=== PATIENT | male | born 1965 | race Caucasian/White ===

== ENCOUNTER 2016-12-21 05:11 | Inpatient (IN) | payer OTHER ==
[2016-12-21] VITALS (15 sets, daily range): BP systolic 112–139; BP diastolic 62–90
[~2016-12-21] VITALS: Ht 172.7 cm; Wt 79.4 kg
[~2016-12-21 05:11] MED LIST: Bacitracin 50000 Units Vial ONE; Bupivacaine 0.5% Inj 30 ml vial INJ ONE; Bupivacaine w/Epi 0.5% 30ml Vial INJ ONE; Gelfoam Absorbable 1gm powder pkt TOPIC ONE; Heparin 5000 units/ml inj ONE; IBUPROFEN600 MG ORAL; LOSARTAN POTASS25 MG ORAL; SOMA350 MG PO; Surgicel 4in x 8in TOPIC ONE; TRAMADOL HCL50 MG ORAL; Thrombin 5000 units TOPIC ONE; Thrombin 5000 units spray kit TOPIC ONE
--- NOTE | 2016-12-21 06:58 | Pre-Procedure Note/Attestation ---
Pre-Procedure Note/Attestation Complete Prior to Procedure Planned Procedure: not applicable Procedure Narrative: For L3-4 Disc Arthroplasty and L5/S1 ALIF Indications for Procedure Pre-Operative Diagnosis: Disc Herniation and instability L3-4 and L5/S1 Attestation I attest that I discussed the nature of the procedure; its benefits; risks and complications; and alternatives (and the risks and benefits of such alternatives ), prior to the procedure, with the patient (or the patient's legal employment representative). I attest that, if there was a reasonable possibility of needing a blood transfusion, the patient (or the patient's legal employment representative) was given the [facility] standardized written summary, pursuant to the Bernardo [place] Blood Safety Act ([place] Health and Safety Code # 1645, as amended). I attest that I re-evaluated the patient just prior to the surgery and that there has been no change in the patient's H&P, except as documented below: MARK LOPES Dec 21, 2016 06:57
[2016-12-21] MEDS ORDERED: NS Irrig 1000ml ONE (07:00)
[2016-12-21] MEDS ORDERED: Zemuron 50mg/5ml Inj IV ONE (07:00)
[2016-12-21] MEDS ORDERED: Labetalol 5mg/ml 20ml vial IV ONE (07:00)
[2016-12-21] MEDS ORDERED: LR 1000ml ONE (07:00)
[2016-12-21] MEDS ORDERED: fentaNYL 100 mcg/2 mL IV ONE (07:00)
[2016-12-21] MEDS ORDERED: Propofol 10mg/ml 20ml IV ONE (07:00)
[2016-12-21] MEDS ORDERED: Sterile Water Irrig 1000ml IRRIG ONE (07:00)
[2016-12-21] MEDS ORDERED: ePHEDrine 50mg/ml Inj ONE (07:00)
[2016-12-21] MEDS ORDERED: Midazolam 2mg/2ml Inj ONE (07:00)
[2016-12-21] MEDS ORDERED: Morphine Sulfate 10mg/ml Inj ONE (07:00)
[2016-12-21] MEDS ORDERED: LORazepam Inj 2mg/ml 1ml IV PRN (08:30)
[2016-12-21] MEDS ORDERED: Labetalol 5mg/ml 20ml vial IV PRN (08:30)
[2016-12-21] MEDS ORDERED: Morphine Sulfate 2mg/ml Inj IVP PRN ×2 (08:30→11:00)
[2016-12-21] MEDS ORDERED: LR 1000ml 1,000 ML IVLG SCH (08:30)
[2016-12-21] MEDS ORDERED: Meperidine 25mg/ml Inj IV PRN (08:30)
[2016-12-21] MEDS ORDERED: LR 1000ml 1,000 ML IV SCH (08:30)
--- NOTE | 2016-12-21 08:41 | Anethesia Preoperative Eval ---
Anesthesia Pre-op PMH/ROS General Date of Evaluation: Dec 21, 2016 Time of Evaluation: 06:55 Anesthesiologist: Candice ASA Score: ASA 2 Mallampati Score Class I : Soft palate, uvula, fauces, pillars visible Class II: Soft palate, uvula, fauces visible Class III: Soft palate, base of uvula visible Class IV: Only hard plate visible Mallampati Classification: Class II Surgeon: Vlad Diagnosis: Lumbar spondylosis Surgical Procedure: ALIF L5-S1, total disc arthroplasty L3-4 Allergies: Coded Allergies: HYDROMORPHONE (Verified Allergy, Intermediate, vomiting, 12/18/16) Medications: see eMAR Past Medical History Cardiovascular: Reports: HTN Pulmonary: Denies: COPD, GRIS, asthma, other Gastrointestinal/Genitourinary: Denies: CRI, ESRD, GERD, other Neurologic/Psychiatric: Denies: CVA, TIA, dementia, depression/anxiety, other Endocrine: Denies: DM, hypothyroidism, other, steroids HEENT: Denies: [place] (L), [place] (R), cataract (L), cataract (R), glaucoma, other Hematology/Immune: Denies: DVT, anemia, bleeding disorder, other Musculoskeletal/Integumentary: Denies: DDD, DJD, OA, RA, edema, other PMH Narrative: Hypertension PSxH Narrative: No prior surgery, has had LESI Anesthesia Pre-op Phys. Exam Physician Exam Last Vital Signs Date Time Temp Pulse Resp B/P Pulse Ox O2 Delivery O2 Flow Rate FiO2 12/21/16 06:03 97.1 84 20 139/90 97 Room Air Constitutional: NAD Neurologic: CN 2-12 intact Cardiovascular: RRR, no M/R/G Respiratory: CTA Gastrointestinal: S/NT/ND Airway Exam Mallampati Score: Class II MO: full ROM: full Teeth: intact Anesthesia Pre-op A/P Labs WNL Studies Pre-op Studies: EKG - NSR, CXR - NAD, echo - EF = 60-65%, no wall motion abnormality, no valve abnormality, PFTS - WNL Risk Assessment & Plan Assessment: Hypertensive male for ALIF and disc arthroplasty Plan: GETA, SedLine monitor Status Change Before Surgery: No Pre-Antibiotics Drug: Ancef Given Within 1 Hr of Incision: Yes Time Given: 07:15 FLORENCE LEHMAN M.D. Dec 21, 2016 08:41
--- NOTE | 2016-12-21 08:43 | Immediate Post-Op Evaluation ---
Immediate Post-Op Evalulation Immediate Post-Op Evalulation Procedure: ALIF L5-S1, total disc arthroplasty L3-4 Date of Evaluation: Dec 21, 2016 Time of Evaluation: 10:50 IV Fluids: 2350 Estimated Blood Loss: 200 Urinary Output: 100 Blood Pressure Systolic: 131 Blood Pressure Diastolic: 84 Pulse Rate: 90 Respiratory Rate: 14 O2 Sat by Pulse Oximetry: 100 Temperature (Fahrenheit): 98.0 Pain Score (1-10): 0 Nausea: No Vomiting: No Complications No complication Patient Status: no response, patent, extubated, none Hydration Status: adequate Drug: Ancef Given Within 1 Hr of Incision: Yes Time Given: 07:15 FLORENCE LEHMAN M.D. Dec 21, 2016 08:42
[2016-12-21] MEDS ORDERED: LORazepam 1mg tab ORAL PRN (11:00)
[2016-12-21] MEDS ORDERED: Rate Change PCA 1 Each MISC PRN (11:00)
[2016-12-21] MEDS ORDERED: Acetaminophen 650 MG SUPP RECTAL PRN (11:00)
[2016-12-21] MEDS ORDERED: DiphenhydrAMINE 50mg/ml Inj IVP PRN (11:00)
[2016-12-21] MEDS ORDERED: Morphine Sulfate 4mg/ml Inj SUBQ PRN (11:00)
[2016-12-21] MEDS ORDERED: Naloxone 0.4mg/ml Inj IVP PRN ×2 (11:00→15:30)
--- NOTE | 2016-12-21 11:04 | Operative Note - PDOC ---
Operative Note Operative Note Date of Operation/Procedure: Dec 21, 2016 Chief Complaint: Low Back Pain, and left leg pain Pre-op Diagnosis: Disc Herniation and instability L3-4 and L5/S1 Procedure: L3-4 ALIF, L5/S1 ALIF Surgeon: Azael Munitions Handler Supervisor: LIBBY Lopes Additional Surgeons: Patrick (Vascular Approach) Anesthesiologist: Candice Specimen: yes Complications: none Estimated Blood Loss: minimal Drains: none Implant(s) used?: Yes - Seferino InFix devices X2 & Seferino DBM MARK LOPES Dec 21, 2016 11:04
--- NOTE | 2016-12-21 11:53 | Diagnostic Imaging Report ---
Indication: PAIN Technique: Digital intraoperative images Comparison: None Findings:Intraoperative images demonstrate surgical tool projected anterior to what is presumably the L4-5 at L5-S1 discs. Subsequent images document placement of disc prostheses at L5-S1 and L3-4. Impression:Intraoperative imaging, as described
[2016-12-21] MEDS: PCA Morphine 1mg/ml 30 ML IV PRN (12:11)
[2016-12-21] MEDS: PCA shift volume MISC SCH ×2 (15:00→23:00)
[2016-12-21] MEDS: ceFAZolin sod 1 GM in D5W 55 ML IV SCH ×2 (15:54→23:57)
[2016-12-21] MEDS: D5 1/2NS w/KCl 20mEq 1,000 ML IV SCH (15:54)
--- NOTE | 2016-12-21 20:47 | Operative Note - Dictated ---
DATE OF OPERATION: 12/21/2016 SURGEON: Vinnie Chu M.D. CIRCULATION MAN: 1. Dr. Ming Nguyne for vascular mobilization and approach. 2. TIMOTEO Duran ANESTHESIOLOGIST: Bernardo Harvey M.D. ANESTHESIA: General endotracheal with arterial blood pressure monitoring. PREOPERATIVE DIAGNOSIS: Disk collapse and bulge at L5-S1 with significant disk degeneration and a large herniation extending into the canal and the left lateral recess and to the posterior aspect of the body of the L4 vertebra at L3-4 causing left-sided nerve root impingement. POSTOPERATIVE DIAGNOSIS: Disk collapse and bulge at L5-S1 with significant disk degeneration and a large herniation extending into the canal and the left lateral recess and to the posterior aspect of the body of the L4 vertebra at L3-4 causing left-sided nerve root impingement. OPERATIVE PROCEDURES: 1. Left pararectus retroperitoneal approach with vessel mobilization and retraction using a table fixed frame and reverse tip blades by Dr. Nguyen. 2. Anterior annulotomy, nuclear diskectomy, and partial vertebrectomy at both the L3-4 and L5-S1 levels. 3. At L5-S1 level, internal stabilization was accomplished using an InFix fusion cage with a medium footprint, 8 mm of height, and 6+ 3 degrees of lordosis. At the L3-4 level, an InFix cage was used for stabilization, 10 mm in height, medium footprint with a 3+ 3 degree addition of lordosis to each of the endplates. The initial plan was to do a total disk arthroplasty at L3-4; however, the construct was not stable and thus, a cage was chosen. Image intensifier was used for placement of the cage. Pulse oximetry was used to monitor the lower extremities during the procedure. Fusion was with autogenous bone and bone protein. DESCRIPTION OF PROCEDURE: The patient was prepped and draped in supine position. After induction of satisfactory general anesthesia, a left-sided pararectus approach was accomplished by Dr. Nguyen. Vessels were mobilized and retracted at the lumbosacral level. The center of the disc was marked and an anterior annulotomy was accomplished with a 10 blade. The soft disc substance and cartilaginous endplates were then removed using straight and angled Kerrisons, curettes, and pituitaries. Ana Luisa tree lordotic distractors were used from side to side beginning at 8 and progressing to 12 mm to progressively expose the posterior aspect of the disc. The dissection was carried down to the PLL and posterior disc anulus, which was released and removed. A bilateral neural foraminotomy and microneurolysis was accomplished at L5-S1 opening the foramen widely. The endplates and remaining soft tissues were tensioned using an 8 and a 10 medium footprint template. The 8 was found to be more appropriate. 6+3 degrees of lordosis was added, 6 to the inferior endplate and 3 defect superior. Two side plates were tapped into position. The side struts were inserted and then cold locked. The cage was checked, found to be well-aligned in both AP and lateral with good endplate contact, good distraction, and good reproduction of lordosis. The retractors were then repositioned at the L3-4 level, and the center was marked, and the anterior anulus was removed, and the soft tissue and cartilaginous endplates were then removed using [id number] lordotic removable distractor plugs along with the Kerrisons, pituitaries, and curettes. The disk pathology was prominent on the left in the left foramen, and the area posterior to the body of L4 was cleared by releasing the PLL and removing all soft disc material. The interspace was sized up and a medium total disk arthroplasty was templated. The alignment aid was then positioned after having good alignment of the template. The keel cuts were made and the prosthesis was inserted. However, on removal, one of the pins held onto the inferior endplate and extricated it. The whole construct was then removed. On inspecting the interspace, the superior endplate was not entirely intact. Thus, a decision was made to switch to an InFix cage. A 10 mm medium size template was inserted, checked in AP and lateral for stability. The final cage was then inserted. The endplates and the side struts were then tapped into place and locked. Position was checked with good stability and good position of the cage on both lateral and AP projections. Bone protein was placed along with autogenous bone that had been harvested during the decompression. Vessels were checked and the wound was closed in layers including anteroposterior sheath, subcutaneous, and skin. Blood loss was 50 mL. The patient was placed in a compression dressing and returned to recovery room in good condition. Vinnie Chu M.D. DR: RYANNE JOB#: [id number] CC: MARQUES
[2016-12-22 00:53] VITALS: BP 121/63
[2016-12-22] MEDS: D5 1/2NS w/KCl 20mEq 1,000 ML IV SCH ×3 (02:30→16:58)
[2016-12-22 04:00] VITALS: BP 127/47
[2016-12-22] MEDS: ceFAZolin sod 1 GM in D5W 55 ML IV SCH (06:12)
[2016-12-22] MEDS: PCA shift volume MISC SCH ×3 (07:09→23:18)
[2016-12-22 08:00] VITALS: BP 152/94
--- NOTE | 2016-12-22 09:19 | General Surgery Progress Note ---
General Surgery-Progress Note Subjective Procedure Performed L3-4 ALIF, L5/S1 ALIF Symptoms: improved Objective Last 24 Hour Vital Signs Date Time Temp Pulse Resp B/P Pulse Ox O2 Delivery O2 Flow Rate FiO2 12/22/16 08:00 98.2 115 20 152/94 96 Room Air 12/22/16 04:00 16 12/22/16 04:00 98.1 118 22 127/47 94 Room Air 12/22/16 00:53 99.0 109 20 121/63 93 Room Air 12/22/16 00:00 18 12/21/16 20:38 96.8 103 20 118/71 96 Room Air 12/21/16 18:40 17 12/21/16 16:14 96.8 97 19 112/75 Nasal Cannula 3.0 12/21/16 16:00 19 12/21/16 14:45 17 12/21/16 14:16 18 12/21/16 13:45 19 12/21/16 13:30 97.7 93 18 132/80 100 Nasal Cannula 2.0 12/21/16 13:15 18 12/21/16 13:00 18 12/21/16 12:30 97.5 95 20 127/87 96 Nasal Cannula 3.0 12/21/16 12:26 16 12/21/16 12:25 98.3 95 20 135/74 99 Nasal Cannula 3.0 12/21/16 12:11 15 12/21/16 12:10 95 25 128/74 100 Nasal Cannula 3.0 12/21/16 11:55 83 22 129/81 100 Nasal Cannula 3.0 12/21/16 11:41 98.3 12/21/16 11:40 78 20 130/80 100 Nasal Cannula 3.0 12/21/16 11:25 85 22 138/70 100 Nasal Cannula 3.0 12/21/16 11:10 84 24 133/66 100 Nasal Cannula 3.0 12/21/16 11:00 89 16 134/73 100 Nasal Cannula 3.0 12/21/16 10:48 87 15 124/66 99 Simple Mask 6.0 12/21/16 10:43 89 16 128/62 99 Simple Mask 6.0 12/21/16 10:42 90 14 100 12/21/16 10:38 98.0 86 25 131/84 99 Simple Mask 6.0 I&O Intake and Output 3/13/17 3/14/17 19:00 07:00 Intake Total 3300 ml Output Total 450 ml 925 ml Balance 2850 ml -925 ml Intake IV Total 3300 ml Output Urine Total 150 ml 925 ml Estimated Blood Loss 300 ml Dressing: other - Dressing: Serous fluid collected under tegaderm, wound clean. Wound: clean Drains: none Abdomen: absent bowel sounds Additional Comments Wound dressing changed.Absent bowel activity >> NPO until passing gas. D/C koch today. OOB with PT / OT with brace. Dr. Reilly following. MARK LOPES Dec 22, 2016 09:19
--- NOTE | 2016-12-22 11:49 | 48 Hour Post Anesthesia Eval ---
Post Anesthesia Evaluation Procedure: ALIF L5-S1, total disc arthroplasty L3-4 Date of Evaluation: Dec 22, 2016 Time of Evaluation: 09:25 Blood Pressure Systolic: 152 0: 94 Pulse Rate: 115 Respiratory Rate: 20 Temperature (Fahrenheit): 98.2 O2 Sat by Pulse Oximetry: 96 Airway: patent Nausea: Yes Vomiting: No Pain Intensity: 6 If pain is > 6 Comment: Instructed patient how to use SAW SETTER and how to use antiemetics Hydration Status: adequate Cardiopulmonary Status: Stable Mental Status/LOC: patient returned to baseline Follow-up Care/Observations: As per surgery Post-Anesthesia Complications: No anesthetic complication Follow-up care needed: N/A FLORENCE LEHMAN M.D. Dec 22, 2016 11:49
[2016-12-22] MEDS: PCA Morphine 1mg/ml 30 ML IV PRN (12:53)
[2016-12-22 14:00] VITALS: BP 132/80
[2016-12-22 16:31] VITALS: BP 132/95
--- NOTE | 2016-12-22 19:08 | Operative Note - Dictated ---
DATE OF OPERATION: 12/21/2016 VASCULAR SURGEON: Ming Nguyen M.D. SPINE SURGEON: Vinnie Chu M.D. PREOPERATIVE DIAGNOSIS: Degenerative joint disease. POSTOPERATIVE DIAGNOSIS: Degenerative joint disease. PROCEDURE: 1. Anterior retroperitoneal exposure of L3-4 vertebral interspace. 2. Anterior retroperitoneal exposure of L5-S1 vertebral interspace. INDICATIONS: The patient is a very pleasant gentleman who is seen prior to surgery. He has been scheduled for anterior spine surgery at L5-S1 and L3-4. He had no prior abdominal surgery. No history of deep venous thrombosis or bleeding complications were elicited. He was made aware of the risks of surgery and does wish to proceed. DESCRIPTION OF FINDINGS: A vertical midline incision was used. A left retroperitoneal approach was used. There was no peritoneal or ureteral violation. There was no vascular injury. Exposure of L5-S1 was obtained initially below the iliac bifurcation with retraction of the left iliac vessels superiorly and laterally. Fluoroscopy was used to confirm the appropriate level. Exposure of L3-4 was obtained by retracting the left iliac vessels and distal aorta and IVC towards the patient's right. There was no vascular injury. Once again, fluoroscopy was used to confirm the appropriate level. Upon completion, the patient had palpable femoral and pedal pulses. BLOOD LOSS: Approximately 200 mL for the entire anterior portion of the case. COMPLICATIONS: None. DESCRIPTION OF PROCEDURE: The patient was taken to the operating room. General anesthesia was used. IV antibiotics were given. The patient's abdomen was prepped and draped. Appropriate time-out procedure was taken. A vertical midline incision was made infraumbilically and extended just to the left side of the umbilicus. The anterior fascia was incised longitudinally in the midline. A plane was identified posterior to the left rectus abdominis, developed posterolaterally towards the patient's left. The retroperitoneal space was entered below the arcuate line. The peritoneum and ureter mobilized towards the patient's right exposing the left common iliac vessel. Dissection was carried on the undersurface of the left common iliac vein. The median sacral artery and vein were divided between vascular clips, and the left iliac vessels were then retracted superiorly and laterally and used to expose the anterior surface of L5-S1. Fluoroscopy used to confirm the appropriate level. Then, instrumentation was performed at L5-S1 and dictated separately. Retractors were then repositioned cranially. Dissection was carried on the left side of the iliac vessels. Overlying lymphatics were ligated with vascular clips. This allowed us to retract the left iliac vessels towards the patient's right exposing anterior surface of L3-4. The L4 segmental artery and vein and the L3 segmental artery and vein as well as accompanying lymphatic vessels were all identified and ligated with vascular clips and divided, and this allowed us to perform safe retraction of the iliac vessels towards the patient's right. Once again, the Omni retractor was used. Fluoroscopy was used to confirm the appropriate level, and then instrumentation and fusion performed at L3-4 and dictated separately. Upon completion, retractors were removed. The patient's peritoneum and ureter were intact. Iliac vessels were intact. Anterior fascia was closed using #1 PDS in a running fashion. Skin and subcutaneous tissue were closed using 3-0 Vicryl and 4-0 Monocryl running subcuticular closure technique. Ming Nguyen M.D. DR: BECKY JOB#: [id number] CC:
[2016-12-22 20:26] VITALS: BP 125/88
[2016-12-23 00:57] VITALS: BP 118/78
[2016-12-23 04:00] VITALS: BP 145/91
[2016-12-23] MEDS: D5 1/2NS w/KCl 20mEq 1,000 ML IV SCH ×2 (04:43→17:08)
[2016-12-23] MEDS: PCA shift volume MISC SCH ×3 (07:03→23:00)
[2016-12-23 08:00] VITALS: BP 134/91
[2016-12-23] MEDS: PCA Morphine 1mg/ml 30 ML IV PRN (08:29)
[2016-12-23] MEDS ORDERED: PCA Morphine 1mg/ml 30 ML IV PRN (11:15)
[2016-12-23] MEDS ORDERED: Morphine Sulfate 2mg/ml Inj IV PRN (11:15)
[2016-12-23] MEDS ORDERED: Rate Change PCA 1 Each MISC PRN (11:15)
[2016-12-23] MEDS ORDERED: Morphine Sulfate 4mg/ml Inj SUBQ PRN ×3 (11:15→15:00)
[2016-12-23 12:00] VITALS: BP 120/75
--- NOTE | 2016-12-23 13:21 | General Surgery Progress Note ---
General Surgery-Progress Note Subjective Procedure Performed L3-4 ALIF, L5/S1 ALIF Symptoms: improved Objective Last 24 Hour Vital Signs Date Time Temp Pulse Resp B/P Pulse Ox O2 Delivery O2 Flow Rate FiO2 12/23/16 12:00 18 12/23/16 08:00 17 12/23/16 08:00 98.0 97 20 134/91 95 Room Air 12/23/16 04:00 18 12/23/16 04:00 98.1 105 20 145/91 92 Room Air 12/23/16 00:57 99.0 104 21 118/78 98 Room Air 12/23/16 00:00 18 12/22/16 20:26 98.8 103 20 125/88 98 Room Air 12/22/16 20:00 18 12/22/16 16:31 98.6 111 18 132/95 98 Room Air 12/22/16 14:00 97.5 87 20 132/80 96 Room Air I&O Intake and Output 12/22/16 12/23/16 19:00 07:00 Intake Total 500 ml 600 ml Output Total 650 ml 300 ml Balance -150 ml 300 ml Intake Oral 100 ml IV Total 500 ml 500 ml Output Urine Total 650 ml 300 ml Dressing: dry Wound: clean Drains: none Additional Comments Still no lower tract bowel gas >> NPO Up in brace, Continue DIGITAL ACCOUNT MANAGER. Dr. Reilly following. MARK LOPES Dec 23, 2016 13:21
[2016-12-23] MEDS ORDERED: Morphine Sulfate 2mg/ml Inj SUBQ PRN (15:00)
[2016-12-23 16:00] VITALS: BP 149/93
--- NOTE | 2016-12-23 17:18 | History & Physical ---
History and Physical History & Physicial 3-14 HP reviewed care noted d/w RN will follow up for medical care JIMMY HINDS Dec 23, 2016 17:18
--- NOTE | 2016-12-23 17:19 | General Progress Note ---
Assessment/Plan Assessment/Plan Disc Herniation and instability L3-4 and L5/S1 L3-4 ALIF, L5/S1 ALIF post operative pain PLAN 1. incentive spirometry 2. SCD 3. PT evaluation and therapy 4. Hydration 5. Pain management 6. discharge once stable with outpatient follow up 7. bladder scan Subjective Allergies: Coded Allergies: HYDROMORPHONE (Verified Allergy, Intermediate, vomiting, 12/18/16) Subjective post op difficulty with urinary output Objective Last 24 Hour Vital Signs Date Time Temp Pulse Resp B/P Pulse Ox O2 Delivery O2 Flow Rate FiO2 12/23/16 12:00 97.5 101 20 120/75 98 Room Air 12/23/16 12:00 18 12/23/16 08:00 17 12/23/16 08:00 98.0 97 20 134/91 95 Room Air 12/23/16 04:00 18 12/23/16 04:00 98.1 105 20 145/91 92 Room Air 12/23/16 00:57 99.0 104 21 118/78 98 Room Air 12/23/16 00:00 18 12/22/16 20:26 98.8 103 20 125/88 98 Room Air 12/22/16 20:00 18 Intake and Output 12/22/16 12/23/16 19:00 07:00 Intake Total 500 ml 700 ml Output Total 650 ml 300 ml Balance -150 ml 400 ml Intake Oral 100 ml IV Total 500 ml 600 ml Output Urine Total 650 ml 300 ml Height (Feet): 5 Height (Inches): 8.00 Weight (Pounds): 175 Objective WDWN NAD clear breath sounds bilaterally without rhonchi or wheeze [id number] without MRG tender no HSM no CCE nonfocal JIMMY HINDS Dec 23, 2016 17:19
[2016-12-23 20:00] VITALS: BP 127/76
[2016-12-24] VITALS: BP 143/92
[2016-12-24 04:00] VITALS: BP 143/89
[2016-12-24] MEDS: D5 1/2NS w/KCl 20mEq 1,000 ML IV SCH (04:21)
[2016-12-24] MEDS: PCA shift volume MISC SCH (07:23)
[2016-12-24 08:38] VITALS: BP 153/88
--- NOTE | 2016-12-24 09:09 | General Progress Note ---
Assessment/Plan Assessment/Plan Disc Herniation and instability L3-4 and L5/S1 L3-4 ALIF, L5/S1 ALIF post operative pain PLAN 1. incentive spirometry 2. SCD 3. PT evaluation and therapy 4. advance diet 5. Pain management 6. discharge once stable with outpatient follow up 7. urinating well Subjective Allergies: Coded Allergies: HYDROMORPHONE (Verified Allergy, Intermediate, vomiting, 12/18/16) Subjective tolerating clears pain better Objective Last 24 Hour Vital Signs Date Time Temp Pulse Resp B/P Pulse Ox O2 Delivery O2 Flow Rate FiO2 12/24/16 08:38 97.1 102 20 153/88 95 Room Air 12/24/16 04:00 16 12/24/16 04:00 97.7 104 18 143/89 95 Room Air 12/24/16 00:00 18 12/24/16 00:00 99.0 111 18 143/92 95 Room Air 12/23/16 20:00 98.8 114 18 127/76 96 Room Air 12/23/16 16:00 19 12/23/16 16:00 98.2 109 19 149/93 95 Room Air 12/23/16 12:00 97.5 101 20 120/75 98 Room Air 12/23/16 12:00 18 Intake and Output 12/23/16 12/24/16 19:00 07:00 Intake Total 900 ml 1200 ml Output Total 50 ml 300 ml Balance 850 ml 900 ml IV Total 900 ml 1200 ml Output Urine Total 50 ml 300 ml Height (Feet): 5 Height (Inches): 8.00 Weight (Pounds): 175 Objective WDWN NAD clear breath sounds bilaterally without rhonchi or wheeze [id number] without MRG tender no HSM no CCE nonfocal JIMMY HINDS Dec 24, 2016 09:09
--- NOTE | 2016-12-24 09:16 | General Surgery Progress Note ---
General Surgery-Progress Note Subjective Procedure Performed L3-4 ALIF, L5/S1 ALIF Symptoms: improved, passing flatus Objective Last 24 Hour Vital Signs Date Time Temp Pulse Resp B/P Pulse Ox O2 Delivery O2 Flow Rate FiO2 12/24/16 08:38 97.1 102 20 153/88 95 Room Air 12/24/16 04:00 16 12/24/16 04:00 97.7 104 18 143/89 95 Room Air 12/24/16 00:00 18 12/24/16 00:00 99.0 111 18 143/92 95 Room Air 12/23/16 20:00 98.8 114 18 127/76 96 Room Air 12/23/16 16:00 19 12/23/16 16:00 98.2 109 19 149/93 95 Room Air 12/23/16 12:00 97.5 101 20 120/75 98 Room Air 12/23/16 12:00 18 I&O Intake and Output 12/23/16 12/24/16 19:00 07:00 Intake Total 900 ml 1200 ml Output Total 50 ml 300 ml Balance 850 ml 900 ml IV Total 900 ml 1200 ml Output Urine Total 50 ml 300 ml Dressing: dry - Ilana-incisiion erythema secondary to [place] use. Will watch. Additional Comments Begin to SLOWLY advance diet. D/C NURSING TECHNICIAN Dr. Reilly following. Would hold discharge until patient clearly tolerating full diet.Patient has long trip to his home. MARK LOPES Dec 24, 2016 09:15
[2016-12-24 12:48] VITALS: BP 151/92
[2016-12-24] MEDS ORDERED: Tubing IV Secondary IV ONE (15:09)
[2016-12-24 16:00] VITALS: BP 141/94
[2016-12-24 20:00] VITALS: BP 133/79
[2016-12-25 04:00] VITALS: BP 139/99
[2016-12-25 07:44] VITALS: BP 140/99
[2016-12-25 12:30] VITALS: BP 154/97
--- NOTE | 2016-12-28 10:19 | Discharge Summary ---
Discharge Summary Hospital Course Date of Admission Dec 21, 2016 at 05:11 Date of Discharge Dec 25, 2016 at 13:03 Admitting Diagnosis DDD with lumbar herniation and instability, lumbar spondylosis Reason for Hospitalization: elevtive surgery HPI Ken Flood is a 51 year old male who was admitted on Dec 21, 2016 at 05:11 for elective surgery due to advanced DDD with herniation , nerve impingement and lumbar disc instability Consultations IM dr Reilly Procedures surgery 12/21 1. Left pararectus retroperitoneal approach with vessel mobilization and retraction using a table fixed frame and reverse tip blades dr Nguyen 2. Anterior retroperitoneal exposure of L3-[address] Nguyen 3. Anterior retroperitoneal exposure of L5-S1 vertebral interspace.dr Nguyen 4. Anterior annulotomy, nuclear diskectomy, and partial vertebrectomy at both the L3-4 and L5-S1 levels. dr Vlad Nguyen Hospital Course patient admitted for elective sugreyr due to advanced DDD with herniation, nerve impingement and disc instability s/p surgery 12/21 dr Chu ( neurosurgeon) dr Nguyen ( vascular surgeon) course of recovery uneventful pain management. initially [employer], subsequently dc and changed to oral analgesics voided freely PT eval and Rx fall precautions able to ambulate voided freely tolerated diet SCD IS at beside, encouraged to use while in bed BP management with ARB, stable initially geno-incisional erythema 2 to Dermabond-resolved surgery cleared for dc fup as outpt with surgeon DISCHARGE DIAGNOSIS advanced DDD disc herniation and instability L3-4 and L5/S1with left sided nerve root impingement s/p L3-4 ALIF, s/p L5/S1 ALIF post operative pain HTN Discharge Medications Continued Medications: Carisoprodol* (Soma*) 350 Mg Tablet 350 MG PO Q6H, TAB Losartan Potassium* (Losartan Potassium*) 25 Mg Tablet 25 MG ORAL HS, TAB Tramadol Hcl* (Ultram*) 50 Mg Tablet 50 MG ORAL Q6H PRN for For Pain, #30 TAB 0 Refills Discontinued Medications: Ibuprofen* (Motrin*) 600 Mg Tablet 800 MG ORAL Q8H PRN for For Pain, #30 TAB 0 Refills Discharge Condition Upon Discharge: stable Discharge Disposition Patient was discharged to Home (01) Discharge Diagnoses: Discharge Instructions Discharge Instructions Special Instructions I have been assigned to complete a D/C Summary on this account. I was not involved in the patient management Victoria (Vanchtein),Trish POWELL Dec 28, 2016 10:19
--- NOTE | 2017-01-22 09:17 | General Progress Note ---
Assessment/Plan Assessment/Plan Disc Herniation and instability L3-4 and L5/S1 L3-4 ALIF, L5/S1 ALIF post operative pain PLAN 1. dc today 2. SCD 3. PT evaluation and therapy 4. tolerating diet 5. Pain management 6. discharge home Subjective Date patient seen: Dec 25, 2016 Allergies: Coded Allergies: HYDROMORPHONE (Verified Allergy, Intermediate, vomiting, 12/18/16) Subjective dc plan today Objective reviewed Height (Feet): 5 Height (Inches): 8.00 Weight (Pounds): 175 Objective WDWN NAD clear breath sounds bilaterally without rhonchi or wheeze [id number] without MRG tender no HSM no CCE nonfocal JIMMY HINDS Jan 22, 2017 09:17
== END 2016-12-25 13:03 | disposition home or self-care (01) | DRG 460 ==
LOC: SDSOVERFLO 05:11 → 3E 12:35
PROC: 0SG30A0 Fusion of Lumbosacral Joint with Interbody Fusion Device, Anterior Approach, Anterior Column, Open Approach (ICD-10-PCS; principal; 2016-12-21 07:00)
PROC: 0SB40ZZ Excision of Lumbosacral Disc, Open Approach (ICD-10-PCS; principal; 2016-12-21 07:00)
PROC: 0SG00A0 Fusion of Lumbar Vertebral Joint with Interbody Fusion Device, Anterior Approach, Anterior Column, Open Approach (ICD-10-PCS; principal; 2016-12-21 07:00)
PROC: 0SB20ZZ Excision of Lumbar Vertebral Disc, Open Approach (ICD-10-PCS; principal; 2016-12-21 07:00)
DX: M51.16 Intervertebral disc disorders with radiculopathy, lumbar region (principal); I10 Essential (primary) hypertension; M53.2X6 Spinal instabilities, lumbar region; M51.17 Intervertebral disc disorders with radiculopathy, lumbosacral region; M47.26 Other spondylosis with radiculopathy, lumbar region; V89.2XXS Person injured in unspecified motor-vehicle accident, traffic, sequela; Z88.6 Allergy status to analgesic agent
CPT/HCPCS: 36415; 72020; 76001; 86850; 86900; 86901; 87081; 94003; 94150; J2250; J2405